=== PATIENT | female | born 1990 | race Two or more races ===

== ENCOUNTER 2016-09-27 09:57 | Emergency (ER) | payer SELFPAY ==
--- NOTE | 2016-09-27 10:23 | ED Physician Chart ---
Chief Complaint/HPI - Patient Information Date Seen:: 09/27/16 Time Seen:: 10:10 Chief Complaint:: COUGH History of Present Illness:: THIS IS A 25 YEAR OLD FEMALE WHO STATES THAT FOR A MONTH SHE HAS BEEN COUGHING WITH NASAL/SINUS CONGESTION. SHE DENIES A PAST HISTORY OF PNEUMONIA. SHE DENIES HYPERTENSION, DIABETES AND HEART PROBLEMS. SHE DENIES FEVER CURRENTLY BUT IS CONCERNED ABOUT HER CHEST CONGESTION. SHE DENIES ANY RECENT EXPOSURE TO ILL PATIENTS. Allergies:: Allergies Allergy/AdvReac Type Severity Reaction Status Date / Time No Known Allergies Allergy Verified 09/27/16 10:06 Vitals:: Vital Signs - 8 hr 09/27/16 10:08 Temp 98.2 F HR 98 RR 21 BP 146/85 O2 Sat % 99 Historian:: Patient Review:: Nurse's Note Reviewed Review of Systems - Review of Systems General/Constitutional: No fever, No chills, No weight loss, No weakness, No diaphoresis, No edema, No loss of appetite Skin: No skin lesions, No rash, No bruising Head: No headache, No light-headedness Eyes: No loss of vision, No pain, No diplopia ENT: No earache, Nasal drainage, Sore throat, No tinnitus Neck: No neck pain, No swelling, No thyromegaly, No stiffness, No mass noted Cardio Vascular: No chest pain, No palpitations, No PND, No orthopnea, No edema Pulmonary: No SOB, Cough, No sputum, No wheezing GI: No nausea, No vomiting, No diarrhea, No pain, No melena, No hematochezia, No constipation, No hematemesis G/U: No dysuria, No frequency, No hematuria Musculoskeletal: No bone or joint pain, No back pain, No muscle pain Endocrine: No polyuria, No polydipsia Psychiatric: No prior psych history, No depression, No anxiety, No suicidal ideation Hematopoietic: No bruising, No lymphadenopathy Allergic/Immuno: No urticaria, No angioedema Neurological: No syncope, No focal symptoms, No weakness, No paresthesia, No headache, No seizure, No dizziness, No confusion, No vertigo Past Medical History - Past Medical History Obtainable: Yes Family History: None Surgical History: other (OVARIAN SURGERY) Family Medical History - Family Member Father History Unknown: Yes Hx Family Diabetes: Yes Physical Exam - Physical Examination General/Constitutional: Awake, Well-developed, well-nourished, Alert, No distress, GCS 15, Non-toxic appearing, Ambulatory Head: Atraumatic Eyes: Lids, conjuctiva normal, PERRL, EOMI Skin: Nl inspection, No rash, No skin lesions, No ecchymosis, Well hydrated, No lymphadenopathy ENMT: External ears, nose nl, Lips, teeth, gums nl Other ENMT comments:: THE NASAL CONGESTION POSTERIOR PHARYNX IS RED AND SWOLLEN Neck: Nontender, Full ROM w/o pain, No JVD, No nuchal rigidity, No bruit, No mass, No stridor Respiratory: Nl effort/Exclusion, Clear to Auscultation Other Respiratory comments:: THERE ARE BILATERAL RHONCHI HEARD. Cardio Vascular: RRR, No murmur, gallop, rubs, NL S1 S2 GI: No tenderness/rebounding/guarding, No organomegaly, No hernia, Normal BS's, Nondistended, No mass/bruits, No McBurney tenderness : No CVA tenderness Extremities: No tenderness or effusion, Full ROM, normal strength in all extremities, No edema, Normal digits & nails Neuro/Psych: Alert/oriented, DTR's symmetric, Normal sensory exam, Normal motor strength, Judgement/insight normal, Mood normal, Normal gait, No focal deficits Misc: normal gait, Normal back, No paraspinal tenderness ED Septic Shock - . Is Septic Shock (SBP<90, OR Lactate>4 mmol\L) present?: No - <6hrs of presentation: Vital Signs: Vital Signs - 8 hr 09/27/16 10:08 Temp 98.2 F HR 98 RR 21 BP 146/85 O2 Sat % 99 Reassessment (Disposition) - Reassessment Reassessment Condition:: Improved - Diagnosis Diagnosis:: BRONCHITIS SINUSITIS - Aftercare/Follow up Instructions Aftercare/Follow-Up Instructions:: Counseled pt regarding lab results/diagnosis & need follow up, Refer to Discharge Instructions, Counseled pt & family regarding lab results/diagnosis & need follow up - Patient Disposition Discharge/Transfer:: Home Condition at Disposition:: Improved ED Discharge Plan - Patient Disposition Admit/Discharge/Transfer: PT DISCHARGED HOME Condition at Disposition: Improved Accepting Physician: Benson Lujan [Active] - 1-3 Days
== END 2016-09-27 11:35 | disposition home or self-care (01) ==
LOC: ER 09:57
DX: J40 Bronchitis, not specified as acute or chronic (principal); J32.9 Chronic sinusitis, unspecified
CPT/HCPCS: 99285; 96372 ×2; 81025; J0696; J2930